=== PATIENT | male | born 1940 | race Caucasian/White ===

== ENCOUNTER → 2017-08-09 | Outpatient (CLI) | payer MEDICARE | END | disposition home or self-care (01) | LOC: SHCH 15:04 | PROVIDERS: ATTEND Internal Medicine Cardiovascular Disease | DX: I87.2 Venous insufficiency (chronic) (peripheral) (principal) | CPT/HCPCS: 93970 ==

== ENCOUNTER → 2017-09-23 | Outpatient (CLI) | payer MEDICARE | END | disposition home or self-care (01) | LOC: SHCH 13:42 | PROVIDERS: ATTEND Internal Medicine Cardiovascular Disease | DX: R60.9 Edema, unspecified (principal); R06.02 Shortness of breath | CPT/HCPCS: 93306 ==

== ENCOUNTER 2018-02-20 19:31 | Emergency (ER) | payer MEDICARE ==
[2018-02-20 20:16] LABS: BASOPHILS % (AUTO) 0.8 % (0.0-5.0); EOSINOPHILS % (AUTO) 4.4 % (0.0-8.0); HEMATOCRIT 47.5 % (42-54); MEAN CORPUSCULAR HEMOGLOBIN 29.5 pg (27.0-33.0); MEAN CORPUSCULAR HGB CONC 33.9 g/dL (32.0-36.0); MEAN CORPUSCULAR VOLUME 87.2 fL (79-99); MONOCYTES % (AUTO) 11.9 % (3.0-13.0); NEUTROPHILS % (AUTO) 71.9 % (40.0-77.0); NUCLEATED RED BLOOD CELLS 0.1 % (0.0-0.19); PLATELET COUNT (AUTO) 163 K/uL (130-400); RED BLOOD CELL COUNT(AUTO) 5.45 MIL/uL (4.50-6.20); WHITE BLOOD COUNT (AUTO) 6.8 K/uL (4.8-10.8)
[2018-02-20 20:27] LABS: CREATININE 1.2 mg/dL (0.5-1.5); POTASSIUM 3.7 mmol/L (3.5-5.1)
[2018-02-20 20:31] LABS: ALBUMIN 3.3 g/dL (3.5-5.0); BILIRUBIN,TOTAL 0.5 mg/dL (0.2-1.0); TOTAL PROTEIN, SERUM 7.5 g/dL (6.0-8.3)
[2018-02-20] MEDS ORDERED: KETOROLAC TROMETHAMINE 15MG/ML ONE (20:39)
[2018-02-20 20:53] LABS: APPEARANCE,URINE Clear (CLEAR); BILIRUBIN,URINE Small (NEGATIVE); COLOR,URINE Dark Yellow (YELLOW); GLUCOSE, URINE (UA) Negative (NEGATIVE); KETONES,URINE Trace mg/dL (NEGATIVE); LEUKOCYTE ESTERASE ,URINE Trace (NEGATIVE); NITRATE,URINE Negative (NEGATIVE); OCCULT BLOOD,URINE Negative (NEGATIVE); PH,URINE 5.5 (5.0-8.0); PROTEIN,URINE POS 1+ (NEGATIVE)
[2018-02-20 21:03] LABS: AMPHET/METH SCREEN,URINE NEGATIVE (NEGATIVE); BARBITURATE SCREEN, URINE NEGATIVE (NEGATIVE); BENZODIAZEPINES SCREEN,URINE NEGATIVE (NEGATIVE); CANNABINOID SCREEN,URINE NEGATIVE (NEGATIVE); COCAINE SCREEN,URINE NEGATIVE (NEGATIVE); OPIATE SCREEN,URINE POSITIVE (NEGATIVE); PHENCYCLIDINE SCREEN,URINE NEGATIVE (NEGATIVE)
[2018-02-20 21:05] LABS: BACTERIA,URINE Rare /HPF (None Seen); MUCUS,URINE Few LPF (None Seen); RBC,URINE None Seen /HPF (0-1)
[2018-02-20] MEDS ORDERED: LEVOFLOXACIN 500 MG TABLET ONE (23:00)
== END 2018-02-20 23:17 | disposition home or self-care (01) ==
LOC: EDH 19:31
DX: A09 Infectious gastroenteritis and colitis, unspecified (principal); J44.9 Chronic obstructive pulmonary disease, unspecified; E78.5 Hyperlipidemia, unspecified; Z72.0 Tobacco use
CPT/HCPCS: 36415; 74176; 76705; 80053; 80305; 81001; 82150; 83690; 85025; 96374; 96375; 99285; J1885

== ENCOUNTER 2018-08-31 21:55 | Inpatient (IN) | payer MEDICARE | END 2018-09-03 14:30 | disposition home or self-care (01) | LOC: EDH 21:55 → EDHIP 09-01 00:30 → 3AH 09-01 02:20 | DX: K56.609 Unspecified intestinal obstruction, unspecified as to partial versus complete obstruction (principal); F17.210 Nicotine dependence, cigarettes, uncomplicated; K21.9 Gastro-esophageal reflux disease without esophagitis; H91.90 Unspecified hearing loss, unspecified ear ==

== ENCOUNTER 2019-07-31 11:02 | Emergency (ER) | payer MEDICARE, OTHER ==
[~2019-07-31 11:02] MED LIST: ASPI-555 PO; FLUT16H NASAL; GABA600T10 PO; HYDR-4064 PO; LOVA20TA3 PO; OMEP40CA13 PO; PRED10TA3 PO; TAMS-1 PO; TIOT18CA3 IH
[2019-07-31] MEDS ORDERED: IPRATROPIUM/ALBUTEROL SULFATE 3 ML SOLUTION IH ONE (11:47)
[2019-07-31 11:49] LABS: BASOPHILS % (AUTO) 0.2 % (0.0-5.0); EOSINOPHILS % (AUTO) 0.3 % (0.0-8.0); LYMPHOCYTES % (AUTO) 11.1 % (21.0-51.0); MEAN CORPUSCULAR HEMOGLOBIN 30.2 pg (27.0-33.0); MEAN CORPUSCULAR HGB CONC 33.3 g/dL (32.0-36.0); MEAN CORPUSCULAR VOLUME 90.9 fL (79-99); MONOCYTES % (AUTO) 3.6 % (3.0-13.0); NEUTROPHILS % (AUTO) 84.2 % (40.0-77.0); PLATELET COUNT (AUTO) 134 K/uL (130-400); RED BLOOD CELL COUNT(AUTO) 5.06 MIL/uL (4.50-6.20); WHITE BLOOD COUNT (AUTO) 6.6 K/uL (4.8-10.8)
[2019-07-31 11:54] LABS: CREATININE 1.2 mg/dL (0.5-1.5); POTASSIUM 3.1 mmol/L (3.5-5.1)
[2019-07-31] MEDS ORDERED: METHYLPREDNISOLONE SOD SUCC 125MG/2ML VIAL ONE (11:55)
[2019-07-31] MEDS ORDERED: CEFTRIAXONE SODIUM 2 GM VIAL ONE (11:55)
[2019-07-31] MEDS ORDERED: SODIUM CHLORIDE 0.9% 100 ML IV ONE (11:56)
[2019-07-31 11:59] LABS: ALBUMIN 3.2 g/dL (3.5-5.0); BILIRUBIN,TOTAL 0.8 mg/dL (0.2-1.0); TOTAL PROTEIN, SERUM 7.2 g/dL (6.0-8.3)
[2019-07-31 12:08] LABS: INR 0.9 (0.85-1.15); PARTIAL THROMBOPLASTIN TIME 24.9 SEC (26.3-35.5); PROTHROMBIN TIME 9.8 SEC (9.6-11.6)
[2019-07-31 12:25] LABS: ABG BASE EXCESS 4.1 mmol/L (-2.0-3.0); ABG HCO3 30.6 mmol/L (21.0-28.0); ABG OXYGEN SATURATION 99.4 % (95.0-99.0); ABG PCO2 53 mmHg (35-48)
[2019-07-31 12:32] LABS: B-TYPE NATRIURETIC PEPTIDE 15 pg/mL (0-100)
== END 2019-07-31 17:40 | disposition left against medical advice (07) ==
LOC: EDH 11:02
DX: J44.1 Chronic obstructive pulmonary disease with (acute) exacerbation (principal); Z20.828 Contact with and (suspected) exposure to other viral communicable diseases
CPT/HCPCS: 36415; 36600; 71045; 80053; 82550; 82803; 83880; 84484; 85025; 85610; 85730; 87040 ×2; 87633; 87635; 87804 ×2; 93005; 94640; 94660; 96374; 96375; 99291; J0696; J2930

== ENCOUNTER 2020-04-13 09:26 | Observation (INO) | payer OTHER ==
[~2020-04-13] VITALS: Ht 167.6 cm; Wt 96.9 kg
[~2020-04-13 09:26] MED LIST changes: -ASPI-555 PO; +ASPI-556 PO
[2020-04-13 10:10] LABS: INR 1.11 (0.85-1.15); PARTIAL THROMBOPLASTIN TIME 30.7 SEC (26.3-35.5); PROTHROMBIN TIME 11.9 SEC (9.6-11.6)
[2020-04-13] MEDS ORDERED: AZITHROMYCIN 500MG+NS 250ML 250 ML IV ONE (10:12)
[2020-04-13] MEDS ORDERED: DEXAMETHASONE SOD PHOSPHATE 10MG/ML 1ML VIAL ONE (10:12)
[2020-04-13] MEDS ORDERED: CEFTRIAXONE SODIUM 2 GM VIAL ONE (10:12)
[2020-04-13] MEDS ORDERED: SODIUM CHLORIDE 0.9% 1000ML 3,000 ML IV ONE (10:13)
[2020-04-13 10:14] LABS: ALBUMIN 2.8 g/dL (3.5-5.0); BILIRUBIN,TOTAL 3.5 mg/dL (0.2-1.0); TOTAL PROTEIN, SERUM 6.2 g/dL (6.0-8.3)
[2020-04-13 10:22] LABS: POTASSIUM 2.7 mmol/L (3.5-5.1)
[2020-04-13] MEDS ORDERED: ASPIRIN 325 MG TABLET ONE (10:23)
[2020-04-13 10:27] LABS: BASOPHILS % (AUTO) 0.3 % (0.0-5.0); EOSINOPHILS % (AUTO) 0.2 % (0.0-8.0); HEMATOCRIT 40.5 % (42-54); LYMPHOCYTES % (AUTO) 6.6 % (21.0-51.0); MEAN CORPUSCULAR HEMOGLOBIN 29.2 pg (27.0-33.0); MEAN CORPUSCULAR HGB CONC 32.8 g/dL (32.0-36.0); MEAN CORPUSCULAR VOLUME 88.8 fL (79-99); MONOCYTES % (AUTO) 4.6 % (3.0-13.0); NEUTROPHILS % (AUTO) 87.2 % (40.0-77.0); PLATELET COUNT (AUTO) 147 K/uL (130-400); RED BLOOD CELL COUNT(AUTO) 4.56 MIL/uL (4.50-6.20); RED CELL DISTRIBUTION WIDTH 15.3 % (11.0-15.5); WHITE BLOOD COUNT (AUTO) 13.2 K/uL (4.8-10.8)
[2020-04-13 11:03] LABS: APPEARANCE,URINE CLEAR (CLEAR); BILIRUBIN,URINE NEGATIVE (NEGATIVE); COLOR,URINE YELLOW (YELLOW); GLUCOSE, URINE (UA) NEGATIVE (NEGATIVE); KETONES,URINE 5 mg/dL (NEGATIVE); LEUKOCYTE ESTERASE ,URINE NEGATIVE (NEGATIVE); NITRATE,URINE NEGATIVE (NEGATIVE); OCCULT BLOOD,URINE NEGATIVE (NEGATIVE); PH,URINE 8.5 (5.0-8.0); PROTEIN,URINE TRACE mg/dL (NEGATIVE)
[2020-04-13] MEDS ORDERED: POTASSIUM BICARB/CIT AC 25 MEQ TABLET.EFF ONE (11:05)
[2020-04-13 11:26] LABS: BACTERIA,URINE None Seen /HPF (None Seen); RBC,URINE None Seen /HPF (0-1); WBC,URINE None Seen /HPF (0-1)
[2020-04-13 11:28] LABS: SPERM,URINE Few /HPF (None Seen); SQUAMOUS EPITHELIAL CELL,UR 0-2 /HPF (0-2)
[2020-04-13] MEDS ORDERED: DEXTROSE 50%-WATER 50 ML DISP.SYRIN IV PRN (17:15)
[2020-04-13] MEDS ORDERED: MAGNESIUM 2GM PREMIX 50ML 50 ML IV PRN (17:15)
[2020-04-13] MEDS: DOXYCYCLINE 100MG+NS 250ML 250 ML IV SCH (17:15)
[2020-04-13] MEDS ORDERED: POTASSIUM CHLORIDE 10% ELIXIR 20 MEQ/15 ML UDCUP PO PRN (17:15)
[2020-04-13] MEDS ORDERED: GLUCAGON 1MG KIT 1 MG ML IM PRN (17:15)
[2020-04-13] MEDS: CEFTRIAXONE SODIUM 500 MG VIAL IV SCH (17:15)
[2020-04-13] MEDS: IPRATROPIUM/ALBUTEROL SULFATE 3 ML SOLUTION IH SCH (18:00)
[2020-04-13] MEDS ORDERED: DOXYCYCLINE 100MG+NS 250ML 250 ML IV ONE (18:27)
[2020-04-13] MEDS ORDERED: METHYLPREDNISOLONE SOD SUCC 40MG/ML 1ML ONE (20:13)
[2020-04-13] MEDS: INSULIN HUMULIN R 100 UNIT/ML 3ML SQ SCH (21:00)
[2020-04-13] MEDS: METHYLPREDNISOLONE SOD SUCC 40MG/ML 1ML IVP SCH (21:00)
[2020-04-13 22:36] VITALS: BP 122/81
[2020-04-13] MEDS: POTASSIUM CHLORIDE 20 MEQ ERTAB PO PRN (23:04)
[2020-04-13] MEDS: POTASSIUM CHLORIDE 20MEQ/100ML 100 ML IV PRN (23:04)
[2020-04-13] MEDS: LIDOCAINE HCL-MPF 1% 2ML VIAL IV PRN (23:04)
[2020-04-13] MEDS ORDERED: GUAIFENESIN-DM 200/20 MG 10 ML ONE (23:54)
[2020-04-13] MEDS ORDERED: BENZONATATE 100 MG CAPSULE PO ONE (23:55)
[2020-04-14] MEDS ORDERED: BENZONATATE 100 MG CAPSULE PO PRN
[2020-04-14] MEDS ORDERED: ALBUTEROL INHALER 90MCG/INH IH PRN
[2020-04-14] MEDS ORDERED: GUAIFENESIN-DM 200/20 MG 10 ML PO PRN
[2020-04-14] MEDS ORDERED: ALBUTEROL INHALER 90MCG/INH IH ONE ×2 (00:05→00:19)
[2020-04-14] MEDS: IPRATROPIUM/ALBUTEROL SULFATE 3 ML SOLUTION IH SCH (01:42)
[2020-04-14] MEDS: POTASSIUM CHLORIDE 20 MEQ ERTAB PO PRN ×3 (02:06→17:15)
[2020-04-14] MEDS: POTASSIUM CHLORIDE 20MEQ/100ML 100 ML IV PRN (02:07)
[2020-04-14] MEDS: LIDOCAINE HCL-MPF 1% 2ML VIAL IV PRN (02:07)
[2020-04-14] MEDS ORDERED: DOXYCYCLINE 100MG+NS 250ML 250 ML IV ONE (03:00)
[2020-04-14 04:10] VITALS: BP 142/82
[2020-04-14 04:13] LABS: ABG BASE EXCESS 2.8 mmol/L (-2.0-3.0); ABG HCO3 26.3 mmol/L (21.0-28.0); ABG OXYGEN SATURATION 93.3 % (95.0-99.0); ABG PCO2 37 mmHg (35-48)
[2020-04-14 04:20] LABS: BASOPHILS % (AUTO) 0.2 % (0.0-5.0); HEMATOCRIT 41.5 % (42-54); LYMPHOCYTES % (AUTO) 4.6 % (21.0-51.0); MEAN CORPUSCULAR HEMOGLOBIN 29.1 pg (27.0-33.0); MEAN CORPUSCULAR HGB CONC 32.3 g/dL (32.0-36.0); MONOCYTES % (AUTO) 2.2 % (3.0-13.0); NEUTROPHILS % (AUTO) 92.2 % (40.0-77.0); PLATELET COUNT (AUTO) 160 K/uL (130-400); RED BLOOD CELL COUNT(AUTO) 4.61 MIL/uL (4.50-6.20); WHITE BLOOD COUNT (AUTO) 13.1 K/uL (4.8-10.8)
[2020-04-14 04:54] LABS: ALBUMIN 2.6 g/dL (3.5-5.0); BILIRUBIN,TOTAL 1.3 mg/dL (0.2-1.0); CREATININE 1.2 mg/dL (0.5-1.5); MAGNESIUM 2.2 mg/dL (1.80-2.40); PHOSPHORUS 2.8 mg/dL (2.5-4.9); POTASSIUM 3.4 mmol/L (3.5-5.1); TOTAL PROTEIN, SERUM 6.7 g/dL (6.0-8.3)
[2020-04-14] MEDS: DOXYCYCLINE 100MG+NS 250ML 250 ML IV SCH ×2 (05:16→17:14)
[2020-04-14] MEDS: INSULIN HUMULIN R 100 UNIT/ML 3ML SQ SCH ×4 (06:29→21:00)
[2020-04-14 07:30] VITALS: BP 130/72
[2020-04-14] MEDS ORDERED: ASPIRIN 81MG TAB.CHEW ONE (08:33)
[2020-04-14] MEDS ORDERED: METOPROLOL TARTRATE 50 MG TAB ONE (08:34)
[2020-04-14] MEDS ORDERED: ZOSYN 3.375GM+NS 50ML 50 ML IV ONE (08:35)
[2020-04-14] MEDS: FAMOTIDINE 20MG TAB 20 MG TAB PO SCH ×2 (08:38→22:30)
[2020-04-14] MEDS: ENOXAPARIN SODIUM 40 MG/0.4 ML SYRINGE SQ SCH (08:39)
[2020-04-14] MEDS: METHYLPREDNISOLONE SOD SUCC 40MG/ML 1ML IVP SCH ×2 (08:48→16:41)
[2020-04-14] MEDS: CEFTRIAXONE SODIUM 500 MG VIAL IV SCH (09:00)
[2020-04-14 11:00] VITALS: BP 117/57
[2020-04-14 16:00] VITALS: BP 131/79
[2020-04-14] MEDS ORDERED: LEVO50CA4 PO (18:36)
[2020-04-14] MEDS ORDERED: TRAZ-185 PO (18:37)
[2020-04-14] MEDS ORDERED: MONT10TA21 PO (18:38)
[2020-04-14 19:50] VITALS: BP 131/76
[2020-04-14 23:28] VITALS: BP 139/80
[2020-04-15] MEDS: IPRATROPIUM/ALBUTEROL SULFATE 3 ML SOLUTION IH SCH ×3 (01:43→10:49)
[2020-04-15 03:38] VITALS: BP 170/94
[2020-04-15 05:17] LABS: HEMATOCRIT 36.8 % (42-54); MEAN CORPUSCULAR HEMOGLOBIN 28.6 pg (27.0-33.0); MEAN CORPUSCULAR HGB CONC 31.5 g/dL (32.0-36.0); MEAN CORPUSCULAR VOLUME 90.9 fL (79-99); RED BLOOD CELL COUNT(AUTO) 4.05 MIL/uL (4.50-6.20); RED CELL DISTRIBUTION WIDTH 15.2 % (11.0-15.5); WHITE BLOOD COUNT (AUTO) 10.8 K/uL (4.8-10.8)
[2020-04-15] MEDS: DOXYCYCLINE 100MG+NS 250ML 250 ML IV SCH (05:25)
[2020-04-15 06:09] LABS: CREATININE 1.1 mg/dL (0.5-1.5)
[2020-04-15] MEDS: INSULIN HUMULIN R 100 UNIT/ML 3ML SQ SCH ×2 (07:30→11:26)
[2020-04-15 08:25] VITALS: BP 135/52
[2020-04-15] MEDS: FAMOTIDINE 20MG TAB 20 MG TAB PO SCH (09:56)
[2020-04-15] MEDS: METHYLPREDNISOLONE SOD SUCC 40MG/ML 1ML IVP SCH (09:57)
[2020-04-15] MEDS: ENOXAPARIN SODIUM 40 MG/0.4 ML SYRINGE SQ SCH (09:57)
== END 2020-04-15 11:00 | disposition left against medical advice (07) ==
LOC: EDH 09:26 → EDHIP 16:20 → 4BH 21:42
PROVIDERS: ADMIT Internal Medicine Critical Care Medicine; ATTEND Internal Medicine Critical Care Medicine
DX: J18.1 Lobar pneumonia, unspecified organism (principal); Z20.828 Contact with and (suspected) exposure to other viral communicable diseases; E87.6 Hypokalemia; R60.1 Generalized edema; J43.9 Emphysema, unspecified; H91.90 Unspecified hearing loss, unspecified ear; I10 Essential (primary) hypertension; E78.5 Hyperlipidemia, unspecified; K21.9 Gastro-esophageal reflux disease without esophagitis; F17.210 Nicotine dependence, cigarettes, uncomplicated; Z96.659 Presence of unspecified artificial knee joint; Z79.82 Long term (current) use of aspirin; Z79.899 Other long term (current) drug therapy
CPT/HCPCS: 36415 ×3; 36600; 71045 ×2; 71250; 80048; 80053 ×2; 81001; 82803; 82948 ×6; 83605; 83735; 83880; 84100; 84145; 84484; 85025 ×2; 85027; 85610; 85730; 87426; 87804 ×2; 93005; 94640 ×3; 94664; 96365; 96366 ×3; 96367; 96372 ×2; 96375 ×2; 96376 ×2; 97039 ×2; 97161; 99285; G0378 ×41; G8978; G8979; G8980; G8981; G8982; G8983; J0456; J0696 ×3; J1100; J1650 ×2; J2543; J2920 ×3; J3480 ×2; J3490 ×6; J7030; U0003

== ENCOUNTER → 2020-07-18 | Outpatient (CLI) | payer OTHER ==
[~2020-07-18] MED LIST changes: +LEVO50CA4 PO; +MONT10TA21 PO; +TRAZ-185 PO
== END | disposition home or self-care (01) ==
LOC: SHCH 14:21
PROVIDERS: ATTEND Internal Medicine Cardiovascular Disease
DX: R06.09 Other forms of dyspnea (principal)
CPT/HCPCS: 93306; 93356

== ENCOUNTER → 2020-07-24 | Outpatient (CLI) | payer OTHER | END | disposition home or self-care (01) | LOC: SHCH 10:13 | PROVIDERS: ATTEND Internal Medicine Cardiovascular Disease | DX: I87.2 Venous insufficiency (chronic) (peripheral) (principal) | CPT/HCPCS: 93970 ==

== ENCOUNTER 2021-04-11 15:28 | Inpatient (IN) | payer OTHER ==
[~2021-04-11] VITALS: Ht 175.3 cm; Wt 95.3 kg
[~2021-04-11 15:28] MED LIST changes: -OMEP40CA13 PO; +OMEP40CA21 PO
[2021-04-11] MEDS ORDERED: HYDROCODONE/ACETAMINOPHEN 10/325 MG TAB PO ONE (16:30)
[2021-04-11] MEDS ORDERED: HYDROCODONE/ACETAMINOPHEN 10/325 MG TAB ONE (16:38)
[2021-04-11 17:26] LABS: BASOPHILS % (AUTO) 0.2 % (0.0-5.0); EOSINOPHILS % (AUTO) 0.3 % (0.0-8.0); HEMATOCRIT 48.8 % (42-54); MEAN CORPUSCULAR HEMOGLOBIN 28.9 pg (27.0-33.0); MEAN CORPUSCULAR HGB CONC 31.6 g/dL (32.0-36.0); MEAN CORPUSCULAR VOLUME 91.6 fL (79-99); MONOCYTES % (AUTO) 3.3 % (3.0-13.0); NEUTROPHILS % (AUTO) 87.9 % (40.0-77.0); PLATELET COUNT (AUTO) 148 K/uL (130-400); RED BLOOD CELL COUNT(AUTO) 5.33 MIL/uL (4.50-6.20); RED CELL DISTRIBUTION WIDTH 14.4 % (11.0-15.5); WHITE BLOOD COUNT (AUTO) 15.5 K/uL (4.8-10.8)
[2021-04-11] MEDS ORDERED: HYDROMORPHONE 0.5 MG SYG (0.5MG/0.5ML) IVP ONE (17:30)
[2021-04-11 17:37] LABS: PROTHROMBIN TIME 10.9 SEC (9.6-11.6)
[2021-04-11 17:39] LABS: PARTIAL THROMBOPLASTIN TIME 24.3 SEC (26.3-35.5)
[2021-04-11 17:43] LABS: CREATININE 1.3 mg/dL (0.5-1.5); POTASSIUM 3.2 mmol/L (3.5-5.1)
[2021-04-11 17:48] LABS: ALBUMIN 3.4 g/dL (3.5-5.0); BILIRUBIN,TOTAL 0.7 mg/dL (0.2-1.0); TOTAL PROTEIN, SERUM 6.7 g/dL (6.0-8.3)
[2021-04-11] MEDS: NICOTINE 21 MG/ 24 HR PATCH TD SCH (19:49)
[2021-04-12] MEDS ORDERED: HYDROMORPHONE 0.5 MG SYG (0.5MG/0.5ML) ONE (07:31)
[2021-04-12] MEDS ORDERED: CEFTRIAXONE 2GM VIAL IVP SCH (08:30)
[2021-04-12] MEDS: KETOROLAC 15MG/ML VIAL (15MG/ML) IV PRN ×3 (08:57→23:34)
[2021-04-12] MEDS ORDERED: POTASSIUM CHLORIDE 20MEQ/100ML 100 ML IV PRN ×2 (09:00→14:30)
[2021-04-12] MEDS: DEXTROSE 5 % AND 0.9 % NACL 1,000 ML IV SCH ×2 (09:01→23:33)
[2021-04-12] MEDS: NICOTINE 21 MG/ 24 HR PATCH TD SCH (09:06)
[2021-04-12 09:29] LABS: BASOPHILS % (AUTO) 0.5 % (0.0-5.0); EOSINOPHILS % (AUTO) 1.3 % (0.0-8.0); HEMATOCRIT 43.4 % (42-54); LYMPHOCYTES % (AUTO) 12.1 % (21.0-51.0); MEAN CORPUSCULAR HGB CONC 32.3 g/dL (32.0-36.0); MEAN CORPUSCULAR VOLUME 89.9 fL (79-99); MONOCYTES % (AUTO) 5.5 % (3.0-13.0); NEUTROPHILS % (AUTO) 79.9 % (40.0-77.0); PLATELET COUNT (AUTO) 125 K/uL (130-400); RED BLOOD CELL COUNT(AUTO) 4.83 MIL/uL (4.50-6.20); RED CELL DISTRIBUTION WIDTH 14.5 % (11.0-15.5); WHITE BLOOD COUNT (AUTO) 11.3 K/uL (4.8-10.8)
[2021-04-12 09:41] LABS: ALBUMIN 2.8 g/dL (3.5-5.0); BILIRUBIN,TOTAL 1.8 mg/dL (0.2-1.0); CREATININE 1.2 mg/dL (0.5-1.5); MAGNESIUM 1.9 mg/dL (1.80-2.40); TOTAL PROTEIN, SERUM 5.9 g/dL (6.0-8.3)
[2021-04-12 09:46] LABS: POTASSIUM 2.9 mmol/L (3.5-5.1)
[2021-04-12 09:48] LABS: B-TYPE NATRIURETIC PEPTIDE 65 pg/mL (0-100)
[2021-04-12] MEDS ORDERED: FAMOTIDINE 20MG VIAL IV ONE (10:00)
[2021-04-12 10:52] LABS: ABG BASE EXCESS 3.9 mmol/L (-2.0-3.0); ABG HCO3 27.4 mmol/L (21.0-28.0); ABG OXYGEN SATURATION 93.9 % (95.0-99.0); ABG PCO2 37 mmHg (35-48)
[2021-04-12 10:58] VITALS: BP 104/58
[2021-04-12] MEDS: IPRATROPIUM 0.5 MG/2.5 ML INH IH SCH ×4 (11:06→23:39)
[2021-04-12 11:32] LABS: APPEARANCE,URINE Clear (CLEAR); BILIRUBIN,URINE Small (NEGATIVE); COLOR,URINE Dark Yellow (YELLOW); GLUCOSE, URINE (UA) Negative (NEGATIVE); KETONES,URINE Trace mg/dL (NEGATIVE); LEUKOCYTE ESTERASE ,URINE Trace (NEGATIVE); NITRATE,URINE Negative (NEGATIVE); OCCULT BLOOD,URINE Negative (NEGATIVE); PROTEIN,URINE Trace mg/dL (NEGATIVE)
[2021-04-12] MEDS: HYDROMORPHONE 0.5 MG SYG (0.5MG/0.5ML) IVP PRN ×3 (11:43→19:56)
[2021-04-12 11:45] LABS: RBC,URINE 0-1 /HPF (0-1); WBC,URINE 0-1 /HPF (0-1)
[2021-04-12 11:46] LABS: BACTERIA,URINE None Seen /HPF (None Seen); SQUAMOUS EPITHELIAL CELL,UR 0-2 /HPF (0-2)
[2021-04-12] MEDS ORDERED: IPRATROPIUM 0.5 MG/2.5 ML INH IH SCH (12:00)
[2021-04-12] MEDS ORDERED: LIDOCAINE HCL-MPF 1% 2ML VIAL IV PRN (14:30)
[2021-04-12] MEDS ORDERED: POTASSIUM CHLORIDE 10% ELIXIR 20 MEQ/15 ML UDCUP PO PRN (14:30)
[2021-04-12] MEDS ORDERED: ESOM20CA39 PO (14:44)
[2021-04-12] MEDS ORDERED: MONT-39 PO (14:44)
[2021-04-12] MEDS ORDERED: PRED10B PO (14:44)
[2021-04-12] MEDS ORDERED: TERB250T89 PO (14:44)
[2021-04-12] MEDS ORDERED: HYDR-4068 PO (14:44)
[2021-04-12] MEDS ORDERED: TRAZ-253 PO (14:44)
[2021-04-12] MEDS ORDERED: LEVO50TA6 PO (14:44)
[2021-04-12] MEDS ORDERED: FURO40TA5 PO (14:44)
[2021-04-12] MEDS ORDERED: TAMS-1 PO (14:44)
[2021-04-12] MEDS ORDERED: LOVA20TA3 PO (14:45)
[2021-04-12] MEDS ORDERED: FLUT1BLS3 IH (14:50)
[2021-04-12] MEDS ORDERED: IPRA3AMP24 NEB (14:50)
[2021-04-12] MEDS ORDERED: IPRAHFA PO (14:50)
[2021-04-12] MEDS: KCL 20 MEQ ERTAB PO PRN (15:00)
[2021-04-12 16:10] VITALS: BP 129/76
[2021-04-12] MEDS: PREDNISONE 10 MG TABLET PO SCH ×2 (16:15→19:54)
[2021-04-12] MEDS: ATORVASTATIN 10 MG TABLET PO SCH (17:00)
[2021-04-12] MEDS: FUROSEMIDE 20 MG TABLET PO SCH ×2 (19:25→19:55)
[2021-04-12 19:28] VITALS: BP 109/55
[2021-04-12] MEDS: MONTELUKAST SODIUM 10 MG TAB PO SCH (19:54)
[2021-04-12 23:27] VITALS: BP 109/54
[2021-04-12] MEDS: TRAZODONE HCL 50 MG TAB PO PRN (23:33)
[2021-04-13] VITALS (28 sets, daily range): BP systolic 112–137; BP diastolic 54–74
[2021-04-13] MEDS: LEVOTHYROXINE 50 MCG TABLET PO SCH (00:59)
[2021-04-13 04:17] LABS: POTASSIUM 3.6 mmol/L (3.5-5.1)
[2021-04-13 05:47] LABS: BASOPHILS % (AUTO) 0.6 % (0.0-5.0); EOSINOPHILS % (AUTO) 1.2 % (0.0-8.0); LYMPHOCYTES % (AUTO) 6.8 % (21.0-51.0); MEAN CORPUSCULAR HEMOGLOBIN 29.5 pg (27.0-33.0); MEAN CORPUSCULAR HGB CONC 31.7 g/dL (32.0-36.0); MONOCYTES % (AUTO) 4.3 % (3.0-13.0); PLATELET COUNT (AUTO) 118 K/uL (130-400); RED BLOOD CELL COUNT(AUTO) 4.41 MIL/uL (4.50-6.20); RED CELL DISTRIBUTION WIDTH 14.6 % (11.0-15.5)
[2021-04-13 06:05] LABS: CREATININE 1.3 mg/dL (0.5-1.5)
[2021-04-13] MEDS: IPRATROPIUM 0.5 MG/2.5 ML INH IH SCH ×4 (06:23→23:15)
[2021-04-13] MEDS: HYDROMORPHONE 0.5 MG SYG (0.5MG/0.5ML) IVP PRN ×3 (07:33→22:06)
[2021-04-13] MEDS ORDERED: CEFAZOLIN SODIUM 1 GM VIAL ONE (08:08)
[2021-04-13] MEDS ORDERED: 0.9%NACL 1000ML 1,000 ML IV ONE (08:08)
[2021-04-13] MEDS ORDERED: KETAMINE 50MG/ML SYRINGE 50 MG/ML DISP.SYRIN IV ONE ×3 (08:10→09:23)
[2021-04-13] MEDS ORDERED: HYDROCORTISONE SOD SUCCINATE 100 MG/2 ML VIAL ONE (08:10)
[2021-04-13] MEDS ORDERED: GLYCOPYRROLATE 1 MG/5 ML SYRINGE ONE (08:11)
[2021-04-13] MEDS ORDERED: PROPOFOL 10 MG/ML 20ML VIAL IV ONE ×4 (08:25→09:36)
[2021-04-13] MEDS ORDERED: TRANEXAMIC ACID 1000MG/10ML ONE (09:00)
[2021-04-13] MEDS: TAMSULOSIN HCL 0.4 MG CAP.ER.24H PO SCH (09:00)
[2021-04-13] MEDS: TERBINAFINE HCL PO SCH (09:00)
[2021-04-13] MEDS ORDERED: FAMOTIDINE 20MG VIAL IV ONE ×2 (09:00→16:02)
[2021-04-13] MEDS: FUROSEMIDE 20 MG TABLET PO SCH ×2 (09:00→20:05)
[2021-04-13] MEDS: HYDROCORTISONE SOD SUCCINATE 100 MG/2 ML VIAL IV SCH ×3 (09:00→20:07)
[2021-04-13] MEDS: NICOTINE 21 MG/ 24 HR PATCH TD SCH (09:00)
[2021-04-13] MEDS: **HM**(Fluticasone/Umeclidin/Vilanter (Trelegy Ellipta 100-62.5- IH SCH (09:00)
[2021-04-13] MEDS ORDERED: VANCOMYCIN 1G/250ML KIT 250 ML IV ONE (09:45)
[2021-04-13] MEDS: ACETAMINOPHEN 500 MG TABLET PO SCH ×2 (10:00→20:06)
[2021-04-13] MEDS ORDERED: MEPERIDINE-PF 25 MG/ML SYG ONE (11:18)
[2021-04-13] MEDS: KETOROLAC 15MG/ML VIAL (15MG/ML) IV PRN (12:42)
[2021-04-13] MEDS ORDERED: KETOROLAC 30MG VIAL (30MG/ML) ONE (13:21)
[2021-04-13] MEDS: KETOROLAC 30MG VIAL (30MG/ML) IV SCH (13:24)
[2021-04-13] MEDS: CEFAZOLIN SODIUM 1 GM VIAL IVP SCH ×2 (14:24→22:14)
[2021-04-13] MEDS: DEXTROSE 5 % AND 0.9 % NACL 1,000 ML IV SCH ×2 (15:30→22:16)
[2021-04-13] MEDS ORDERED: CALCIUM CARB 500MG CHEW TAB ONE (16:13)
[2021-04-13] MEDS: FAMOTIDINE 20MG VIAL IV SCH (16:28)
[2021-04-13] MEDS ORDERED: CALCIUM CARB 500MG CHEW TAB PO PRN (16:30)
[2021-04-13] MEDS: ATORVASTATIN 10 MG TABLET PO SCH (16:54)
[2021-04-13] MEDS: MONTELUKAST SODIUM 10 MG TAB PO SCH (20:05)
[2021-04-13] MEDS: TRAZODONE HCL 50 MG TAB PO PRN (20:05)
[2021-04-13] MEDS: KCL 20 MEQ ERTAB PO PRN (20:05)
[2021-04-14] VITALS: BP 145/64
[2021-04-14] MEDS: ACETAMINOPHEN 500 MG TABLET PO SCH ×3 (03:36→17:54)
[2021-04-14 04:00] VITALS: BP 115/61
[2021-04-14 04:17] LABS: HEMATOCRIT 34.2 % (42-54); MEAN CORPUSCULAR HEMOGLOBIN 29.7 pg (27.0-33.0); MEAN CORPUSCULAR HGB CONC 33.6 g/dL (32.0-36.0); MEAN CORPUSCULAR VOLUME 88.4 fL (79-99); RED BLOOD CELL COUNT(AUTO) 3.87 MIL/uL (4.50-6.20); RED CELL DISTRIBUTION WIDTH 14.3 % (11.0-15.5); WHITE BLOOD COUNT (AUTO) 8.3 K/uL (4.8-10.8)
[2021-04-14 04:30] LABS: CREATININE 1.2 mg/dL (0.5-1.5); POTASSIUM 3.7 mmol/L (3.5-5.1)
[2021-04-14] MEDS: LEVOTHYROXINE 50 MCG TABLET PO SCH (05:13)
[2021-04-14] MEDS: IPRATROPIUM 0.5 MG/2.5 ML INH IH SCH ×3 (06:26→23:26)
[2021-04-14 07:30] VITALS: BP 117/61
[2021-04-14] MEDS: HYDROMORPHONE 0.5 MG SYG (0.5MG/0.5ML) IVP PRN ×3 (07:31→21:02)
[2021-04-14] MEDS: TERBINAFINE HCL PO SCH (09:00)
[2021-04-14] MEDS: **HM**(Fluticasone/Umeclidin/Vilanter (Trelegy Ellipta 100-62.5- IH SCH (09:00)
[2021-04-14] MEDS: FAMOTIDINE 20MG VIAL IV SCH (09:25)
[2021-04-14] MEDS: FUROSEMIDE 20 MG TABLET PO SCH ×2 (09:25→21:01)
[2021-04-14] MEDS: TAMSULOSIN HCL 0.4 MG CAP.ER.24H PO SCH (09:25)
[2021-04-14] MEDS: NICOTINE 21 MG/ 24 HR PATCH TD SCH (09:26)
[2021-04-14] MEDS: PREDNISONE 10 MG TABLET PO SCH ×2 (09:26→21:01)
[2021-04-14 11:00] VITALS: BP 121/60
[2021-04-14] MEDS: KETOROLAC 30MG VIAL (30MG/ML) IV SCH (13:30)
[2021-04-14 16:00] VITALS: BP 116/67
[2021-04-14] MEDS: ATORVASTATIN 10 MG TABLET PO SCH (17:53)
[2021-04-14 20:24] VITALS: BP 122/68
[2021-04-14] MEDS: MONTELUKAST SODIUM 10 MG TAB PO SCH (21:01)
[2021-04-14] MEDS: TRAZODONE HCL 50 MG TAB PO PRN (21:01)
[2021-04-14] MEDS: KCL 20 MEQ ERTAB PO PRN (21:02)
[2021-04-15 00:21] VITALS: BP 131/69
[2021-04-15] MEDS: ACETAMINOPHEN 500 MG TABLET PO SCH ×3 (02:18→20:08)
[2021-04-15 04:15] VITALS: BP 118/67
[2021-04-15] MEDS: HYDROMORPHONE 0.5 MG SYG (0.5MG/0.5ML) IVP PRN ×2 (04:22→21:54)
[2021-04-15] MEDS: LEVOTHYROXINE 50 MCG TABLET PO SCH (05:50)
[2021-04-15] MEDS: IPRATROPIUM 0.5 MG/2.5 ML INH IH SCH ×4 (06:48→23:12)
[2021-04-15 08:08] VITALS: BP 114/68
[2021-04-15] MEDS: **HM**(Fluticasone/Umeclidin/Vilanter (Trelegy Ellipta 100-62.5- IH SCH (09:00)
[2021-04-15] MEDS: TERBINAFINE HCL PO SCH (09:00)
[2021-04-15] MEDS: FAMOTIDINE 20MG VIAL IV SCH (10:00)
[2021-04-15] MEDS: NICOTINE 21 MG/ 24 HR PATCH TD SCH (10:00)
[2021-04-15] MEDS: TAMSULOSIN HCL 0.4 MG CAP.ER.24H PO SCH (10:00)
[2021-04-15] MEDS: FUROSEMIDE 20 MG TABLET PO SCH ×2 (10:00→20:07)
[2021-04-15] MEDS: PREDNISONE 10 MG TABLET PO SCH ×2 (10:01→20:06)
[2021-04-15 12:00] VITALS: BP 119/72
[2021-04-15] MEDS: KETOROLAC 30MG VIAL (30MG/ML) IV SCH (13:30)
[2021-04-15 15:49] VITALS: BP 126/65
[2021-04-15] MEDS: ATORVASTATIN 10 MG TABLET PO SCH (16:21)
[2021-04-15] MEDS: KETOROLAC 15MG/ML VIAL (15MG/ML) IV PRN (16:22)
[2021-04-15 20:00] VITALS: BP 121/60
[2021-04-15] MEDS ORDERED: ENOXAPARIN SODIUM 40 MG/0.4 ML SYRINGE SQ SCH (20:00)
[2021-04-15] MEDS: MONTELUKAST SODIUM 10 MG TAB PO SCH (20:06)
[2021-04-15] MEDS: PANTOPRAZOLE 40 MG TAB DR PO SCH (20:07)
[2021-04-16] VITALS: BP 131/65
[2021-04-16] MEDS: ACETAMINOPHEN 500 MG TABLET PO SCH ×2 (02:04→09:29)
[2021-04-16 04:00] VITALS: BP 136/67
[2021-04-16] MEDS: LEVOTHYROXINE 50 MCG TABLET PO SCH (05:27)
[2021-04-16] MEDS: KETOROLAC 15MG/ML VIAL (15MG/ML) IV PRN (05:27)
[2021-04-16] MEDS ORDERED: BUDESONIDE 0.5 MG/2 ML INH IH ONE (06:38)
[2021-04-16] MEDS: IPRATROPIUM 0.5 MG/2.5 ML INH IH SCH ×2 (06:39→11:02)
[2021-04-16 07:12] LABS: BASOPHILS % (AUTO) 0.5 % (0.0-5.0); EOSINOPHILS % (AUTO) 1.5 % (0.0-8.0); LYMPHOCYTES % (AUTO) 13.5 % (21.0-51.0); MEAN CORPUSCULAR HEMOGLOBIN 29.5 pg (27.0-33.0); MEAN CORPUSCULAR HGB CONC 33.1 g/dL (32.0-36.0); MEAN CORPUSCULAR VOLUME 89.1 fL (79-99); MONOCYTES % (AUTO) 7.2 % (3.0-13.0); NEUTROPHILS % (AUTO) 76.3 % (40.0-77.0); PLATELET COUNT (AUTO) 136 K/uL (130-400); RED BLOOD CELL COUNT(AUTO) 3.93 MIL/uL (4.50-6.20); RED CELL DISTRIBUTION WIDTH 14.1 % (11.0-15.5); WHITE BLOOD COUNT (AUTO) 7.3 K/uL (4.8-10.8)
[2021-04-16 07:21] LABS: CREATININE 1.2 mg/dL (0.5-1.5); POTASSIUM 3.9 mmol/L (3.5-5.1)
[2021-04-16 07:57] VITALS: BP 114/64
[2021-04-16] MEDS: KETOROLAC 30MG VIAL (30MG/ML) IV SCH (08:13)
[2021-04-16] MEDS: TERBINAFINE HCL PO SCH (09:00)
[2021-04-16] MEDS: **HM**(Fluticasone/Umeclidin/Vilanter (Trelegy Ellipta 100-62.5- IH SCH (09:00)
[2021-04-16] MEDS ORDERED: BUDESONIDE 0.5 MG/2 ML INH IH SCH (09:00)
[2021-04-16] MEDS ORDERED: THEOPHYLLINE ANHYDROUS 100 MG CAP.ER.24H PO SCH (09:00)
[2021-04-16] MEDS: FUROSEMIDE 20 MG TABLET PO SCH (09:28)
[2021-04-16] MEDS: PREDNISONE 10 MG TABLET PO SCH (09:28)
[2021-04-16] MEDS: PANTOPRAZOLE 40 MG TAB DR PO SCH (09:28)
[2021-04-16] MEDS: TAMSULOSIN HCL 0.4 MG CAP.ER.24H PO SCH (09:28)
[2021-04-16] MEDS: NICOTINE 21 MG/ 24 HR PATCH TD SCH (09:28)
[2021-04-16 10:29] VITALS: BP 121/60
[2021-04-16 15:42] VITALS: BP 121/58
[2021-04-16] MEDS ORDERED: APIXABAN 2.5 MG TABLET PO SCH (21:00)
== END 2021-04-16 17:16 | DRG 521 ==
LOC: EDH 15:28 → EDHIP 04-12 08:36 → 4BH 04-12 10:49
PROVIDERS: ADMIT Internal Medicine; ATTEND Internal Medicine
PROC: 0SRR0JZ Replacement of Right Hip Joint, Femoral Surface with Synthetic Substitute, Open Approach (ICD-10-PCS; principal; 2021-04-12)
DX: S72.011A Unspecified intracapsular fracture of right femur, initial encounter for closed fracture (principal); J96.01 Acute respiratory failure with hypoxia; E87.3 Alkalosis; E87.6 Hypokalemia; E03.9 Hypothyroidism, unspecified; D72.829 Elevated white blood cell count, unspecified; M85.80 Other specified disorders of bone density and structure, unspecified site; Z20.822 Contact with and (suspected) exposure to COVID-19; E66.9 Obesity, unspecified; Z68.31 Body mass index [BMI] 31.0-31.9, adult; R58 Hemorrhage, not elsewhere classified; E87.5 Hyperkalemia; S92.402A Displaced unspecified fracture of left great toe, initial encounter for closed fracture; S41.111A Laceration without foreign body of right upper arm, initial encounter; K21.9 Gastro-esophageal reflux disease without esophagitis; M81.0 Age-related osteoporosis without current pathological fracture; G89.4 Chronic pain syndrome; J44.9 Chronic obstructive pulmonary disease, unspecified; F17.210 Nicotine dependence, cigarettes, uncomplicated; Y93.89 Activity, other specified; Y92.39 Other specified sports and athletic area as the place of occurrence of the external cause; Y99.8 Other external cause status; Z79.52 Long term (current) use of systemic steroids; Z04.89 Encounter for examination and observation for other specified reasons
CPT/HCPCS: 36415; 36600; 70450; 71045; 72170; 73502; 73503; 73620; 73700; 74176; 80048; 80053; 81001; 82550; 82803; 83605; 83735; 83880; 84132; 84145; 84484; 85025; 85027; 85610; 85730; 87088; 87635; 93005; 93926; 94640; 94664; 97039; C1776; G0378; J0690; J0696; J1170; J1650; J1720; J1885; J2175; J2704; J3370; J3480; J3490; J7030; J7042; J7120; J7512